=== PATIENT | female | born 1940 | race Caucasian/White ===

== ENCOUNTER → 2016-09-30 | Day surgery (SDC) | payer MEDICARE ==
[~2016-09-30] MED LIST: ALBU.5I NEB; ALEN35TA24 PO; AMLO5 PO; ANAS1TAB PO; ASPI1TAB69 PO; BUPIVACAINE HCL PF 0.5% 30 ML VIAL ONE; CHOL1TAB31 PO; FENO1TAB46 PO; FLUT50SP EACH NARE; GING500C PO; GLIM1TAB PO; HYDR-3533 PO; IRON18TA2 PO; LEVO.075 PO; LORA-373 PO; MULT-135 PO; MYCO250 PO; MYCO250C PO; PANT40TA3 PO; PRAV80TA2 PO; PRED5TAB PO; PRIL20CA9 PO; PROB1TAB4 PO; PROPOFOL 200 MG/20 ML AMP IV ONE; RANI150T PO; RED600TA PO; SYMB160A INH; TACR1 PO; TEMA15CA PO; TRIAMCINOLONE ACETONIDE 40 MG/ML VIAL I-ARTICULR ONE; VALS1TAB63 PO; XOPEAER4 INH; ZETI10TA5 PO; ZOLP5TAB3 PO; methylPREDNISolone ACETATE 40 MG/ML VIAL I-ARTICULR ONE
--- NOTE | 2016-09-30 22:42 | M6 ---
cc: KELLIE MASON M.D. DATE 09/30/2016 1940 PROCEDURE Fluoroscopically guided injection right sacroiliac joint. History and physical was completed and signed. Consent was signed. Procedure site was marked. Medications were listed and reconciled. Pain score was recorded. Allergies were noted. Time out was taken. Fluoroscopy time was recorded where applicable. Sedation was administered or directed by Dr. Mason. The patient was given oxygen. The patient was monitored by a registered nurse. Total procedure time was greater than 15 minutes. IV was started, blood pressure cuff, pulse oximeter and EKG were applied. The patient was placed in the prone position on a Rufino table sedated with small amounts of propofol titrated to effect. Vital signs were monitored and remained stable throughout the procedure. Sacral area was prepped with alcohol and 10% Betadine solution and draped with sterile drapes. Fluoroscopy was used shooting from medial to lateral to clearly visualize the posterior joint line of the right sacroiliac joint. A sterile 5-inch 22-gauge spinal needle was advanced into the joint under fluoroscopic guidance. There was negative aspiration for blood or any other type of fluid and the patient was given 2 mL of 0.5% Marcaine, 20 mg of Depo-Medrol and 20 mg of Kenalog. Following the procedure, the patient was taken to the recovery room with stable vital signs neurologically intact. W. MD LADARIUS Rosario/ /9:23 AM /10:39 PM
== END | disposition home or self-care (01) ==
LOC: PHSDC 07:07
PROVIDERS: ATTEND Pain Medicine Interventional Pain Medicine
DX: M54.5 Low back pain (principal)
CPT/HCPCS: 99152; G0260; J1030; J3301; 27096

== ENCOUNTER → 2016-10-27 | Day surgery (SDC) | payer MEDICARE ==
[~2016-10-27] MED LIST changes: -BUPIVACAINE HCL PF 0.5% 30 ML VIAL ONE; +MEPERIDINE HCL 25 MG/ML VIAL IV ONE; +SODIUM CHLORIDE 0.9% 10 ML VIAL ONE; -TRIAMCINOLONE ACETONIDE 40 MG/ML VIAL I-ARTICULR ONE; -ZETI10TA5 PO; -methylPREDNISolone ACETATE 40 MG/ML VIAL I-ARTICULR ONE
--- NOTE | 2016-11-01 15:30 | M6 ---
cc: KELLIE MASON M.D. DATE: 10/27/2016 DATE OF : 1940 PROCEDURE Fluoroscopically guided neurolytic substance right sacroiliac joint (3% Phenol). PROCEDURE NOTE History and physical was completed and signed. Consent was signed. Procedure site was marked. Medications were listed and reconciled. Pain score was recorded. Allergies were noted. Timeout was taken. Fluoroscopy time was recorded where applicable. Sedation was administered or directed by Dr. Mason. The patient was given oxygen. The patient was monitored by a registered nurse. Total procedure time was greater than 15 minutes. An IV was started, blood pressure cuff, pulse oximeter and EKG were applied. The patient was placed in the prone position on a Rufino table, sedated with small amounts of propofol titrated to effect. Vital signs were monitored and remained stable throughout the procedure. The sacral area was prepped with alcohol and 10% Betadine solution, draped with sterile drapes. Fluoroscopy was used shooting from medial to lateral to clearly visualize the posterior joint line of the right sacroiliac joint. A 5-inch, 22-gauge spinal needle was advanced into this joint under fluoroscopic guidance. There was negative aspiration for blood or any other type of fluid and the patient was given 2 mL of 3% Phenol. Following this the patient was taken to the recovery room with stable vital signs, neurologically intact. W. MD LADARIUS Rosario/LISA /9:35 AM /3:29 PM
== END | disposition home or self-care (01) ==
LOC: PHSDC 08:03
PROVIDERS: ATTEND Pain Medicine Interventional Pain Medicine
DX: M54.5 Low back pain (principal); M79.604 Pain in right leg
CPT/HCPCS: 64640; 99152; J2175

== ENCOUNTER → 2016-11-08 | Day surgery (SDC) | payer MEDICARE ==
[~2016-11-08] MED LIST changes: -AMLO5 PO; -XOPEAER4 INH
--- NOTE | 2016-11-11 15:53 | M6 ---
cc: KELLIE MASON M.D. DATE: 11/08/2016 DATE OF : 1940. PROCEDURE: Fluoroscopic guided injection neurolytic substance right sacroiliac joint (3% phenol) was used. History and physical was completed and signed. Consent was signed. Procedure site was marked. Medications were listed and reconciled. Pain score was recorded. Allergies were noted. Time out was taken. Fluoroscopy time was recorded where applicable. Sedation was administered or directed by Dr. Mason. The patient was given oxygen. The patient was monitored by a registered nurse. Total procedure time was greater than 15 minutes. IV was started, blood pressure cuff, pulse oximeter and EKG were applied. The patient was placed in the prone position on a Rufino table sedated with small amounts of propofol titrated to effect. Vital signs were monitored and remained stable throughout the procedure. Sacral area was prepped with alcohol and 10% Betadine solution and draped with sterile drapes. Fluoroscopy was used shooting from medial to lateral to clearly visualize the posterior joint line of the right sacroiliac joint a 5-inch 22-gauge spinal needle was advanced into the joint under fluoroscopic guidance. There was negative aspiration for blood or any other type of fluid and the patient was given 2 mL of 3% phenol. Following this the patient was taken to the recovery room with stable vital signs neurologically intact. W. MD LADARIUS Rosario/mario /8:00 AM /3:43 PM
== END | disposition home or self-care (01) ==
LOC: PHSDC 06:46
PROVIDERS: ATTEND Pain Medicine Interventional Pain Medicine
DX: M54.5 Low back pain (principal); M79.604 Pain in right leg
CPT/HCPCS: 64640; 99152; J2175

== ENCOUNTER → 2016-11-15 | Day surgery (SDC) | payer MEDICARE ==
--- NOTE | 2016-11-17 08:06 | M6 ---
cc: KELLIE BARONE M.D. DATE 11/15/2016 DATE OF 1940 PROCEDURE Fluoroscopically guided right sacroiliac joint injection with neurolytic substance (3% phenol). PROCEDURE NOTE IV was started, blood pressure cuff, pulse oximeter and EKG were applied. The patient was will the patient was placed in the prone position on a Rufino table, sedated with small amounts of propofol titrated to effect. Vital signs were monitored and remained stable throughout the procedure. The sacral area was prepped with alcohol and 10% Betadine solution and draped with sterile drapes. Fluoroscopy was used shooting from medial to lateral to clearly visualize the posterior joint line of the right sacroiliac joint. A sterile 5-inch 22-gauge spinal needle was advanced into the joint under fluoroscopic guidance. There was negative aspiration for blood or any other type of fluid and at that location, the patient was given 2 mL of 3% phenol. Following this, the patient was taken to the recovery room with stable vital signs neurologically intact. W. MD LADARIUS Rosario/MERLE /10:40 AM /7:56 AM
== END | disposition home or self-care (01) ==
LOC: PHSDC 09:01
PROVIDERS: ATTEND Pain Medicine Interventional Pain Medicine
DX: M54.5 Low back pain (principal)
CPT/HCPCS: 64640; 99152; J2175

== ENCOUNTER → 2016-12-22 | Day surgery (SDC) | payer MEDICARE ==
[~2016-12-22] MED LIST changes: +BUPIVACAINE HCL PF 0.5% 30 ML VIAL ONE; -MEPERIDINE HCL 25 MG/ML VIAL IV ONE; -SODIUM CHLORIDE 0.9% 10 ML VIAL ONE; +TRIAMCINOLONE ACETONIDE 40 MG/ML VIAL I-ARTICULR ONE; +methylPREDNISolone ACETATE 40 MG/ML VIAL I-ARTICULR ONE
--- NOTE | 2016-12-22 11:34 | M6 ---
cc: KELLIE MASON M.D. DATE: 12/22/2016 1940 PROCEDURE Fluoroscopically guided injection right sacroiliac joint. History and physical was completed and signed. Consent was signed. Procedure site was marked. Medications were listed and reconciled. Pain score was recorded. Allergies were noted. Time out was taken. Fluoroscopy time was recorded where applicable. Sedation was administered or directed by Dr. Mason. The patient was given oxygen. The patient was monitored by a registered nurse. Total procedure time was greater than 15 minutes. IV was started, blood pressure cuff, pulse oximeter and EKG were applied. The patient was placed in the prone position on a Rufino table, sedated with small amounts of propofol titrated to effect. Vital signs were monitored and remained stable throughout the procedure. The sacral area was prepped with alcohol and 10% Betadine solution, draped with sterile drapes. Fluoroscopy was used shooting from medial to lateral to clearly visualize the posterior joint line of the right sacroiliac joint. A sterile 5-inch 22-gauge spinal needle was advanced into the joint under fluoroscopic guidance. There was negative aspiration for blood or any other type of fluid and the patient was given 2 mL of 0.5% Marcaine, 20 mg of Depo-Medrol, 20 mg of Kenalog. Following the procedure the patient was taken to the recovery room with stable vital signs, neurologically intact. W. MD LADARIUS Rosario/CHE /10:00 AM /11:18 AM
== END | disposition home or self-care (01) ==
LOC: PHSDC 08:12
PROVIDERS: ATTEND Pain Medicine Interventional Pain Medicine
DX: M54.5 Low back pain (principal); I10 Essential (primary) hypertension; E11.9 Type 2 diabetes mellitus without complications
CPT/HCPCS: 99152; G0260; J1030; J3301; 27096

== ENCOUNTER → 2017-04-06 | Day surgery (SDC) | payer MEDICARE ==
[~2017-04-06] MED LIST changes: -ASPI1TAB69 PO; +ASPI81CH CHEW; -BUPIVACAINE HCL PF 0.5% 30 ML VIAL ONE; +FERR324T8 PO; +FLUT1INH INH; -IRON18TA2 PO; +LIDOCAINE HCL 1% PF 30 ML VIAL INFIL ONE; +MAPA500T13 PO; +MEPERIDINE HCL 25 MG/ML VIAL IV ONE; +MIDAZOLAM HCL 2 MG/2 ML VIAL IV ONE; -MULT-135 PO; +MULTTAB67 PO; -PRIL20CA9 PO; +SODIUM CHLORIDE 0.9% 10 ML VIAL ONE; -TRIAMCINOLONE ACETONIDE 40 MG/ML VIAL I-ARTICULR ONE; -ZOLP5TAB3 PO
--- NOTE | 2017-04-06 12:18 | M6 ---
cc: Jeanie MASON DATE 04/06/2017 DATE OF 1940 PROCEDURE Radiofrequency ablation right L5 posterior ramus and S1-S2 and S3 lateral branches. PROCEDURE NOTE History and physical was completed and signed. Consent was signed. Procedure site was marked. Medications were listed and reconciled. Pain score was recorded. Allergies were noted. Time out was taken. Fluoroscopy time was recorded where applicable. Sedation was administered or directed by Dr. Mason. The patient was given oxygen. The patient was monitored by a registered nurse. Total procedure time was greater than 15 minutes. IV was started, blood pressure cuff, pulse oximeter and EKG were applied. The patient was placed in the prone position on a Rufino table sedated with small amounts of propofol titrated to effect. Vital signs were monitored and remained stable throughout the procedure. The lumbar area was prepped with alcohol and 10% Betadine solution and draped with sterile drapes. Fluoroscopy was used to visualize the target areas which were the right sacral ala and the right S1, S2 and S3 neural foramen. The skin was infiltrated with 1% Xylocaine using a 27 gauge needle. Then a 17-gauge 75-mm introducer needles were advanced down to the target areas which were the sacral ala and just lateral to the S1, S2 and S3 neural foramen at the 02:30 and 05:30 positions. Then, thermal lesions were made at 60 degrees centigrade times 2-1/2 minutes at each location and then a small amount of Depo-Medrol was injected for a total of 40 mg of Depo-Medrol. Following this, the patient was taken to the recovery room with stable vital signs neurologically intact. MD LADARIUS Lemon/MERLE /10:08 AM /12:07 PM
== END | disposition home or self-care (01) ==
LOC: PHSDC 08:03
PROVIDERS: ATTEND Pain Medicine Interventional Pain Medicine
DX: M54.5 Low back pain (principal)
CPT/HCPCS: 64635; 64640; 99152; 99153; J1030; J2175; J2250

== ENCOUNTER → 2017-06-27 | Day surgery (SDC) | payer MEDICARE ==
[~2017-06-27] MED LIST changes: +ASPI-516 CHEW; -ASPI81CH CHEW; +BUPIVACAINE HCL PF 0.5% 30 ML VIAL ONE; +BUPIVACAINE HCL PF 0.75% 30 ML VIAL ONE; +CHOL1TAB29 PO; -CHOL1TAB31 PO; +LEVOTAB PO; -LIDOCAINE HCL 1% PF 30 ML VIAL INFIL ONE; -LORA-373 PO; +LORA0.5T PO; +MELA1TAB18 PO; -MIDAZOLAM HCL 2 MG/2 ML VIAL IV ONE; -MULTTAB67 PO; -MYCO250C PO; +OMEP20TA93 PO; -SODIUM CHLORIDE 0.9% 10 ML VIAL ONE; +TRIAMCINOLONE ACETONIDE 40 MG/ML VIAL NERV BLOCK ONE; +VITA2000 PO; -methylPREDNISolone ACETATE 40 MG/ML VIAL I-ARTICULR ONE; +methylPREDNISolone ACETATE 40 MG/ML VIAL I-LESIONAL ONE
--- NOTE | 2017-06-27 09:38 | M6 ---
cc: KELLIE MASON M.D. DATE: 06/27/2017 1940 PROCEDURE S5 nerve neurolysis. History and physical was completed and signed. Consent was signed. Procedure site was marked. Medications were listed and reconciled. Pain score was recorded. Allergies were noted. Time out was taken. Fluoroscopy time was recorded where applicable. Sedation was administered or directed by Dr. Mason. The patient was given oxygen. The patient was monitored by a registered nurse. Total procedure time was greater than 15 minutes. IV was started, blood pressure cuff, pulse oximeter and EKG were applied. The patient was placed in the prone position on a Rufino table, sedated with small amounts of propofol titrated to effect. Vital signs were monitored and remained stable throughout the procedure. Sacral and coccygeal area were prepped with alcohol and 10% Betadine solution and draped with sterile drapes. The skin over the coccyx was infiltrated. A 25 gauge needle was inserted down to the periosteum just distal to the sacral hiatus and in a fan-like fashion the patient was given 6 mL of Marcaine 0.75% which contained 40 mg of Kenalog. Following the procedure the patient was taken to the recovery room with stable vital signs, neurologically intact. She will be evaluated immediately and with followup to determine if she has a subjective decrease in her usual pain and a corresponding objective increase in her functional capabilities. W. MD LADARIUS Rosario/CHE /9:23 AM /9:37 AM
== END | disposition home or self-care (01) ==
LOC: PHSDC 07:26
PROVIDERS: ATTEND Pain Medicine Interventional Pain Medicine
DX: M54.5 Low back pain (principal)
CPT/HCPCS: 64640; 99152; J1030; J2175; J3301